=== PATIENT | male | born 1955 | race Caucasian/White ===

== ENCOUNTER 2018-12-26 09:09 | Inpatient (IN) | payer OTHER ==
[~2018-12-26] VITALS: Ht 177.8 cm; Wt 90.2 kg
[~2018-12-26 09:09] MED LIST: CYCL10 PO; HYDACE5325 PO; Percocet 5-3251 EACH PO
[2018-12-26] MEDS ORDERED: CHOL10002 PO (09:42)
[2018-12-26] MEDS ORDERED: ARED PO (09:43)
[2018-12-26 10:01] LABS: BASOPHILS ABSOLUTE AUTO 0.02 K/mm3 (0.00-0.23); BASOPHILS PERCENT AUTO 0 % (0-2); EOSINOPHILS PERCENT AUTO 0 % (0-6); Hematocrit 44.9 % (37.0-53.0); Hemoglobin 15.4 g/dL (13.5-17.5); IMMATURE GRAN ABSOLUTE AUTO 0.05 K/mm3 (0.00-0.10); IMMATURE GRAN PERCENT AUTO 0 % (0-1); LYMPHOCYTES ABSOLUTE AUTO 0.25 K/mm3 (0.84-5.20); LYMPHOCYTES PERCENT AUTO 2 % (21-46); MONOCYTES PERCENT AUTO 2 % (4-13); Mean Corpuscular HGB 31.3 pg (26.0-34.0); Mean Corpuscular HGB Conc 34.3 g/dL (31.5-36.5); Mean Corpuscular Volume 91 fL (80-100); Mean Platelet Volume 11.3 fL (9.1-12.4); NEUTROPHILS ABSOLUTE AUTO 10.89 K/mm3 (1.96-9.15); NEUTROPHILS PERCENT AUTO 95 % (41-73); Platelet Count 147 K/mm3 (150-400); RDW Coefficient Variation 11.9 % (11.7-14.2); RDW Standard Deviation 39.8 fL (35.1-46.3); Red Blood Cell Count 4.92 M/mm3 (4.30-5.90); White Blood Cell Count 11.41 K/mm3 (4.00-11.30)
[2018-12-26 10:01] LABS: Source, Urine Clean Catch
[2018-12-26 10:05] LABS: Blood, Urine 4+ (Neg); Glucose Qualitative, Urine Neg (Neg); Ketones, Urine 3+ (Neg); Leukocyte Esterase, Urine 3+ (Neg); Nitrite, Urine Pos (Neg); Protein, Urine 3+ (Neg); Urobilinogen, Urine 4+ (Normal)
[2018-12-26 10:24] LABS: Appearance, Urine Turbid (Clear); Bilirubin, Urine 1+ (Neg); Color, Urine Orange (P-Yellow)
[2018-12-26 10:27] LABS: Alanine Aminotransfer (ALT/SGP 30 U/L (12-78); Albumin, Blood 3.8 g/dL (3.4-5.0); Albumin/Globulin Ratio 1.1 (0.8-1.8); Alk Phos 65 U/L (50-136); Anion Gap 10 mmol/L (6-16); Aspartate Aminotrans (AST/SGOT 13 U/L (12-37); Bilirubin, Total 2.7 mg/dL (0.1-1.0); Blood Urea Nitrogen 24 mg/dL (8-24); Bun/Creatinine Ratio 26.2 (12.0-20.0); CO2, Blood 23 mmol/L (21-32); Calcium, Blood 8.7 mg/dL (8.5-10.1); Chloride, Blood 103 mmol/L (98-108); Creatinine, Blood 0.92 mg/dL (0.60-1.20); Globulin, Blood 3.5 g/dL (2.2-4.0); Glomerular Filtration Rate >60 (60-); Glucose, Blood 119 mg/dL (70-99); Potassium, Blood 3.8 mmol/L (3.5-5.5); Sodium, Blood 136 mmol/L (136-145); Total Protein, Blood 7.3 g/dL (6.4-8.2)
[2018-12-26 10:27] LABS: White Blood Cells, Urine TNTC /hpf (0-5)
[2018-12-26 10:28] LABS: Bacteria Many /hpf; Squamous Epithelial Cells Rare /hpf (Few)
[2018-12-26 14:22] LABS: Influenza A Negative (NEGATIVE); Influenza B Negative (NEGATIVE)
--- NOTE | 2018-12-26 15:30 | NUR ---
PT ARRIVED TO PCU 12 VIA GURNEY FROM ED. REPORT OBTAINED FROM MARLON ROSARIO, PT IS ABLE TO STAND AND TRANSFER TO BED INDEP. IN ATTENDENCE, PT IS A/OX3, PLEASANT AND COOPERATIVE WITH CARE, FOLLOWS COMMANDS WELL, DENIES PAIN EXCEPT SOME SCIATIC PAIN THAT IS CHRONIC AND DISCOMFORT WITH VOIDING BUT IS MUCH BETTER, LUNGS ARE CLEAR T/O, RESP EVEN AND UNLABORED, NO COUGH NOTED, HRR, TELE IN PLACE RUNNING SR PER MONITOR, SEE STRIP, NO EDEMA NOTED, PPP+2, CAP REFILL <3SEC, VS STABLE, AFEBRILE, IV SITE IS CLEAR AND PATENT, BTX4 ABD FLAT SOFT NONTENDER, VOIDS WITHOUT DIFF, SKIN C/W/D, MAEW, JOCELIN, CALL LIGHT IN REACH.
--- NOTE | 2018-12-26 18:16 | NUR ---
PT VOIDED RADHA URINE, DOING OK, BUT B/P IS STILL RUNNING LOW. CONTINUE TO MONITOR. FAMILY IN ROOM, CALL LIGHT IN REACH.
[2018-12-27 04:02] LABS: BASOPHILS ABSOLUTE AUTO 0.04 K/mm3 (0.00-0.23); BASOPHILS PERCENT AUTO 0 % (0-2); EOSINOPHILS ABSOLUTE AUTO 0.01 K/mm3 (0.00-0.68); EOSINOPHILS PERCENT AUTO 0 % (0-6); Hematocrit 35.1 % (37.0-53.0); Hemoglobin 11.5 g/dL (13.5-17.5); IMMATURE GRAN ABSOLUTE AUTO 0.05 K/mm3 (0.00-0.10); IMMATURE GRAN PERCENT AUTO 0 % (0-1); LYMPHOCYTES ABSOLUTE AUTO 0.82 K/mm3 (0.84-5.20); LYMPHOCYTES PERCENT AUTO 6 % (21-46); MONOCYTES PERCENT AUTO 8 % (4-13); Mean Corpuscular HGB 30.9 pg (26.0-34.0); Mean Corpuscular HGB Conc 32.8 g/dL (31.5-36.5); Mean Platelet Volume 11.9 fL (9.1-12.4); NEUTROPHILS ABSOLUTE AUTO 11.19 K/mm3 (1.96-9.15); NEUTROPHILS PERCENT AUTO 85 % (41-73); Platelet Count 107 K/mm3 (150-400); RDW Coefficient Variation 12.3 % (11.7-14.2); RDW Standard Deviation 42.5 fL (35.1-46.3); Red Blood Cell Count 3.72 M/mm3 (4.30-5.90); White Blood Cell Count 13.11 K/mm3 (4.00-11.30)
[2018-12-27 04:11] LABS: Mean Corpuscular Volume 94 fL (80-100)
[2018-12-27 04:15] LABS: International Normalized Ratio 1.44; Prothrombin Time Results 14.8 Sec (9.7-11.5)
[2018-12-27 04:30] LABS: Alanine Aminotransfer (ALT/SGP 18 U/L (12-78); Albumin, Blood 2.5 g/dL (3.4-5.0); Alk Phos 45 U/L (50-136); Anion Gap 9 mmol/L (6-16); Aspartate Aminotrans (AST/SGOT 13 U/L (12-37); Bilirubin, Total 1.6 mg/dL (0.1-1.0); Blood Urea Nitrogen 18 mg/dL (8-24); Bun/Creatinine Ratio 19.9 (12.0-20.0); CO2, Blood 22 mmol/L (21-32); Calcium, Blood 7.3 mg/dL (8.5-10.1); Chloride, Blood 112 mmol/L (98-108); Globulin, Blood 2.6 g/dL (2.2-4.0); Glomerular Filtration Rate >60 (60-); Glucose, Blood 102 mg/dL (70-99); Potassium, Blood 3.9 mmol/L (3.5-5.5); Sodium, Blood 143 mmol/L (136-145)
[2018-12-27 04:32] LABS: Total Protein, Blood 5.1 g/dL (6.4-8.2)
--- NOTE | 2018-12-27 04:57 | NUR ---
SHIFT SUMMARY: PATIENT BLOOD PRESSURES SLOWLY DROPPING, MD NOTIFIED, ORDERS RECIEVED, BOLUS ADMINISTERED. PATIENT ASYMPTOMATIC, LUNGS CLEAR AND BP STABALIZED. NO OTHER ISSUES NOTED, CALL LIGHT WITHIN REACH, BED LOW AND LOCKED.
--- NOTE | 2018-12-27 15:19 | NUR ---
NOTE PT AWAKE. SR. VOIDING WELL. IVF INFUSING AT 150 ML/HR. PT STILL RUNNING AN ELEVATED TEMPERATURE. HE COMPLAINED OF NAUSEA. GAVE HIM ZOFRAN. HE NIBBLED AT LUNCH. DRINKING OK. NO BM. TALKED WITH PT ABOUT BOWEL CARE. HE STATED HE DIDN'T FEEL BLOTTED OR CONSTIPATED. MAYBE BOWEL CARE LATER. HE DID DRINK A CUP OF COFFEE THIS MORNING. NO EFFECT FOR HIM. AT BEDSIDE. BP SLOWLY IMPROVING THE DAY IS GOING ON. PT HAS DENIED DIZZINESS WITH STANDING OR MOVING AROUND. CONTINUE POT.
--- NOTE | 2018-12-27 20:35 | NUR ---
PROVIDER CONTACTED- PT REPORTING SOME SWELLING TO FINGERS AND TOES. REPORTS SLIGHT COUGH THAT WASN'T PRESENT ON ADMISSION AND REPORTS INABILITY TO TAKE FULL, DEEP BREATH IN. ON ASSESSMENT, BLE'S FOUND WITH NO NOTED EDEMA, FINGERS WITH SLIGHT SWELLING THAT IS NON-PITTING. LUNGS NOTED TO HAVE FINE CRACKLES IN RLL. O2 SATS OF 95% ON RA, ALL OTHER VSS. DANYA SOMMERS CONTACTED AND UPDATED ON PATIENT CONDITION. RECOMMENDATION TO CONTINUE FLUIDS AT ORDERED RATE AND MONITOR CLOSELY FOR CHANGES TO RESPIRATORY STATUS AND VITAL SIGNS. WILL CONTINUE TO MONITOR.
[2018-12-28 04:09] LABS: BASOPHILS ABSOLUTE AUTO 0.03 K/mm3 (0.00-0.23); BASOPHILS PERCENT AUTO 0 % (0-2); EOSINOPHILS ABSOLUTE AUTO 0.01 K/mm3 (0.00-0.68); EOSINOPHILS PERCENT AUTO 0 % (0-6); Hematocrit 38.5 % (37.0-53.0); Hemoglobin 12.9 g/dL (13.5-17.5); IMMATURE GRAN ABSOLUTE AUTO 0.02 K/mm3 (0.00-0.10); IMMATURE GRAN PERCENT AUTO 0 % (0-1); LYMPHOCYTES ABSOLUTE AUTO 0.42 K/mm3 (0.84-5.20); LYMPHOCYTES PERCENT AUTO 6 % (21-46); MONOCYTES ABSOLUTE AUTO 0.29 K/mm3 (0.16-1.47); MONOCYTES PERCENT AUTO 4 % (4-13); Mean Corpuscular HGB 31.5 pg (26.0-34.0); Mean Corpuscular HGB Conc 33.5 g/dL (31.5-36.5); Mean Corpuscular Volume 94 fL (80-100); Mean Platelet Volume 11.8 fL (9.1-12.4); NEUTROPHILS ABSOLUTE AUTO 6.36 K/mm3 (1.96-9.15); NEUTROPHILS PERCENT AUTO 89 % (41-73); Platelet Count 102 K/mm3 (150-400); RDW Coefficient Variation 12.2 % (11.7-14.2); RDW Standard Deviation 42.3 fL (35.1-46.3); White Blood Cell Count 7.13 K/mm3 (4.00-11.30)
[2018-12-28 04:31] LABS: Alanine Aminotransfer (ALT/SGP 24 U/L (12-78); Albumin, Blood 2.7 g/dL (3.4-5.0); Albumin/Globulin Ratio 0.9 (0.8-1.8); Alk Phos 57 U/L (50-136); Anion Gap 7 mmol/L (6-16); Aspartate Aminotrans (AST/SGOT 20 U/L (12-37); Bilirubin, Total 0.8 mg/dL (0.1-1.0); Blood Urea Nitrogen 14 mg/dL (8-24); Bun/Creatinine Ratio 16.5 (12.0-20.0); CO2, Blood 23 mmol/L (21-32); Calcium, Blood 7.7 mg/dL (8.5-10.1); Chloride, Blood 110 mmol/L (98-108); Creatinine, Blood 0.85 mg/dL (0.60-1.20); Globulin, Blood 3.1 g/dL (2.2-4.0); Glomerular Filtration Rate >60 (60-); Glucose, Blood 93 mg/dL (70-99); Sodium, Blood 140 mmol/L (136-145); Total Protein, Blood 5.8 g/dL (6.4-8.2)
--- NOTE | 2018-12-28 05:52 | NUR ---
SHIFT SUMMARY- PT HAS REMAINED AOX4 THROUGHOUT SHIFT. VSS. PLEASANT AND COOPERATIVE WITH CARE. PT CONTINUES TO USE URINAL AT BEDSIDE INDEPENDENTLY. FINE CRACKLES TO RLL HAVE DISSIPATED UPON AUSCULTATION THIS MORNING. LS CURRENTLY CLEAR THROUGHOUT. PT HAS DENIED PAIN AND NAUSEA THROUGHOUT THE NIGHT. PT MEDICATED ONCE FOR ELEVATED TEMP THAT DECREASED WITH ORDERED TYLENOL. REPORTS THAT HE "JUST FEELS EXHAUSTED", ESPECIALLY WITH AMBULATION OR EXCESSIVE MOVEMENT. NO OTHER CHANGES NOTED FROM INITIAL ASSESSMENT. WILL CONTINUE TO MONITOR AND REPORT TO ONCOMING RN. BED IN LOW POSITION, CALL LIGHT IN REACH.
--- NOTE | 2018-12-28 14:59 | NUR ---
NOTE PT RESTING QUIETLY. SR. NO ECTOPY. BP STABLE. NO BREATHING ISSUES. PT SLOWLY STARTING TO MOVE AROUND. STILL HAS A HEADACHE. NO FURTHER RIGORS NOTED. PT TEMPERATURE 99ISH. NO TYLENOL GIVEN. MEDICATED WITH ZOFRAN X1 FOR NAUSEA. PT ATE BETTER FOR LUNCH TODAY. AT BEDSIDE. CONTINUE POT.
--- NOTE | 2018-12-29 06:09 | NUR ---
SHIFT SUMMARY- PT HAS REMAINED AOX4 THROUGHOUT SHIFT. VSS. PLEASANT AND COOPERATIVE WITH CARE. PT WITH ONE ELEVATED TEMP OF 101 THAT DECREASED WITH TYLENOL. PT REPORTING HEADACHE AT START OF SHIFT PT REPORTED THAT IT DECREASED WITH SOME CAFFEINE AND SHOWERING. PT AMBULATES WITH STANDBY ASSIST TO THE RESTROOM AND CONTINUES TO USE URINAL AT BEDSIDE. PT RESTED WELL THROUGHOUT MUCH OF THE NIGHT. NO OTHER CHANGES NOTED FROM INITIAL ASSESSMENT. WILL CONTINUE TO MONITOR AND REPORT TO ONCOMING RN. BED IN LOW POSITION, CALL LIGHT IN REACH.
--- NOTE | 2018-12-29 08:05 | NUR ---
INITIAL ASSESSMENT: Pt resting in bed. Running a Temp (see VS flow sheet). Will medicate with tylenol per orders. Pt denies pain. States that he just doesn't feel very good right now. LS diminished in the RLL. HR reg. BT positive. PUlses palp. Trace edema in hands and feet. Pt states that he is feeling "puffy". IVF running per orders. VSS. Call light in reach. Will monitor.
--- NOTE | 2018-12-29 18:25 | NUR ---
SHIFT SUMMARY: Pt sitting up in bed. at bedside. Denies CP, SOB, or pain at this time. States that he is feeling better. Pt Has been voiding well this shift. IVF were S/L per physician order. VSS throughout shift. Pt had a temp this AM that was brought back down with Tylenol. Since this AM pt has been afebrial. Pt has been up independently in the room. Stable throughout shift. Will report to night RN.
[2018-12-30 04:13] LABS: BASOPHILS ABSOLUTE AUTO 0.03 K/mm3 (0.00-0.23); BASOPHILS PERCENT AUTO 1 % (0-2); EOSINOPHILS ABSOLUTE AUTO 0.08 K/mm3 (0.00-0.68); EOSINOPHILS PERCENT AUTO 2 % (0-6); Hematocrit 37.4 % (37.0-53.0); Hemoglobin 12.6 g/dL (13.5-17.5); IMMATURE GRAN ABSOLUTE AUTO 0.02 K/mm3 (0.00-0.10); IMMATURE GRAN PERCENT AUTO 0 % (0-1); LYMPHOCYTES ABSOLUTE AUTO 1.32 K/mm3 (0.84-5.20); LYMPHOCYTES PERCENT AUTO 24 % (21-46); MONOCYTES ABSOLUTE AUTO 0.93 K/mm3 (0.16-1.47); MONOCYTES PERCENT AUTO 17 % (4-13); Mean Corpuscular HGB Conc 33.7 g/dL (31.5-36.5); Mean Corpuscular Volume 92 fL (80-100); Mean Platelet Volume 11.8 fL (9.1-12.4); NEUTROPHILS ABSOLUTE AUTO 3.11 K/mm3 (1.96-9.15); NEUTROPHILS PERCENT AUTO 57 % (41-73); Platelet Count 124 K/mm3 (150-400); RDW Coefficient Variation 12.2 % (11.7-14.2); RDW Standard Deviation 41.5 fL (35.1-46.3); Red Blood Cell Count 4.07 M/mm3 (4.30-5.90); White Blood Cell Count 5.49 K/mm3 (4.00-11.30)
[2018-12-30 04:42] LABS: Alanine Aminotransfer (ALT/SGP 58 U/L (12-78); Albumin, Blood 2.6 g/dL (3.4-5.0); Albumin/Globulin Ratio 0.8 (0.8-1.8); Alk Phos 71 U/L (50-136); Anion Gap 8 mmol/L (6-16); Aspartate Aminotrans (AST/SGOT 39 U/L (12-37); Bilirubin, Total 0.7 mg/dL (0.1-1.0); Blood Urea Nitrogen 11 mg/dL (8-24); Bun/Creatinine Ratio 12.1 (12.0-20.0); CO2, Blood 25 mmol/L (21-32); Calcium, Blood 8.2 mg/dL (8.5-10.1); Chloride, Blood 107 mmol/L (98-108); Creatinine, Blood 0.91 mg/dL (0.60-1.20); Globulin, Blood 3.2 g/dL (2.2-4.0); Glomerular Filtration Rate >60 (60-); Glucose, Blood 91 mg/dL (70-99); Potassium, Blood 3.9 mmol/L (3.5-5.5); Sodium, Blood 140 mmol/L (136-145); Total Protein, Blood 5.8 g/dL (6.4-8.2)
--- NOTE | 2018-12-30 06:12 | NUR ---
SHIFT SUMMARY- PT HAS REMAINED AOX4 THROUGHOUT SHIFT. VSS. PLEASANT AND COOPERATIVE WITH CARE. PT CONTINUES TO AMBULATE INDEPENDENTLY TO BATHROOM WITHOUT DIFFICULTY. PT MEDICATED ONCE FOR HEADACHE THROUGHOUT THE NIGHT THAT DECREASED WITH ORDERED MEDICATIONS. NO OTHER CHANGES FROM INITIAL ASSESSMENT. WILL CONTINUE TO MONITOR AND REPORT TO ONCOMING SHIFT RN. BED IN LOW POSITION, CALL LIGHT IN REACH.
--- NOTE | 2018-12-30 09:08 | NUR ---
NURSING PCU DAYSHIFT: Assumed care of pt at approx 0700. A/O, pleasant, cooperative w/care. Ambulates independently, mild general weakness noted, c/o dizziness at time. 2/10 AGEE that starts at top of the head and travels down R side of head, tx w/meds as ordered. Skin is intact w/no breakdown noted. No tele in place, HRR, BP stable, no c/o CP/pressure, no noted edema. L/S cta t/o, O2 sat stable on RA, denies dyspnea, no noted cough. Abd SNT, BT+, voiding w/o difficulty per pt. PIV x1, s/l. Pt denies any current needs or questions regarding plan of care. PMD currently at bedside, plan for discharge home. Pt has been ambulated unit independently and w/o difficulty. No s/s of acute distress at this time, cont to monitor until discharge is complete.
[2018-12-30] MEDS ORDERED: Tylenol325 MG PO (09:49)
[2018-12-30] MEDS ORDERED: SACC250C PO (09:51)
[2018-12-30] MEDS ORDERED: Bactrim Ds Tab1 EACH PO (09:52)
[2018-12-30] MEDS ORDERED: TAMS.4ER PO (09:53)
== END 2018-12-30 11:30 | disposition home or self-care (01) | DRG 872 ==
LOC: ER 09:09 → PCU 13:10
PROVIDERS: Emergency Medicine; Hospitalist; ADMIT Internal Medicine
DX: A41.51 Sepsis due to Escherichia coli [E. coli] (principal); N39.0 Urinary tract infection, site not specified; I95.9 Hypotension, unspecified; N40.0 Benign prostatic hyperplasia without lower urinary tract symptoms; D69.6 Thrombocytopenia, unspecified
CPT/HCPCS: 36415; 76770; 80053; 81001; 83605; 83690; 84145; 84153; 85025; 85610; 87040; 87077; 87086; 87186; 87804; 96361; 96365; 96375; 96376; 99285-25; J0696; J2405; J3480; J7030; J7040